=== PATIENT | female | born 1985 ===

== ENCOUNTER 2017-08-31 09:46 | Emergency (ER) | payer OTHER, MEDICAID ==
[2017-08-31 09:49] VITALS: BMI 24.2
[2017-08-31 09:50] VITALS: RESP 16
[2017-08-31] MEDS ORDERED: Naproxen 500 MG TAB PO ONE ×2 (10:11→10:15)
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
[2017-08-31 12:27] VITALS: BP 117/86; PULSE 82; TEMP 97.5; O2SAT 100
== END 2017-08-31 12:24 | disposition home or self-care (01) ==
LOC: H.ER 09:46
DX: S13.4XXA Sprain of ligaments of cervical spine, initial encounter (principal); V43.52XA Car driver injured in collision with other type car in traffic accident, initial encounter; Y92.410 Unspecified street and highway as the place of occurrence of the external cause

== ENCOUNTER 2018-01-04 11:48 | Emergency (ER) | payer MEDICAID, OTHER ==
[2018-01-04 11:48] VITALS: BMI 24.2
--- NOTE | 2018-01-04 12:53 | ED PDOC ---
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 Pt. reports left arm pain that radiates to her chest onset for one month; no associated pleuritic component, no sob. Patient also reports of left foot pain when walking which has been a couple weeks. Pt. also reporting atraumatic left elbow pain. She states she is under stress and has anxiety. Denies family history of heart disease, recent travels, abdominal pain, urinary symptoms or incontinence. PMD: No Family Provider <Carol Clements - Last Filed: 01/04/18 15:59> <Tariq Sheehan - Last Filed: 01/05/18 16:48> Time Seen by Provider: 01/04/18 12:06 Chief Complaint (Nursing): Upper Extremity Problem/Injury Past Medical History Reviewed: Historical Data, Nursing Documentation, Vital Signs Vital Signs: Last Vital Signs Temp 98.0 F 01/04/18 11:56 Pulse 72 01/04/18 11:56 Resp 18 01/04/18 11:56 BP 129/86 01/04/18 11:56 Pulse Ox 99 01/04/18 11:56 - Medical History PMH: No Chronic Diseases - Family History Family History: States: No Known Family Hx <Carol Clements - Last Filed: 01/04/18 15:59> Vital Signs: Last Vital Signs Temp 98 F 01/04/18 13:34 Pulse 70 01/04/18 13:34 Resp 20 01/04/18 13:34 BP 110/70 01/04/18 13:34 Pulse Ox 99 01/04/18 16:04 <Tariq Sheehan - Last Filed: 01/05/18 16:48> - Home Medications Home Medications: Ambulatory Orders Medication Instructions Recorded Cyclobenzaprine [Cyclobenzaprine 10 mg PO TID #15 tab 08/31/17 HCl] RX: Naproxen [Naprosyn] 500 mg PO BID PRN #20 tablet 08/31/17 - Allergies Allergies/Adverse Reactions: Allergies Allergy/AdvReac Type Severity Reaction Status Date / Time No Known Allergies Allergy Verified 04/24/14 18:51 Review of Systems ROS Statement: Except As Marked, All Systems Reviewed And Found Negative Cardiovascular: Positive for: Chest Pain Gastrointestinal: Negative for: Abdominal Pain Genitourinary Female: Negative for: Dysuria, Frequency, Incontinence Musculoskeletal: Positive for: Arm Pain (left), Foot Pain (left ), Other (left elbow painn) Psych: Positive for: Anxiety. Negative for: Suicidal ideation (homicidal ideation) <Carol Clements - Last Filed: 01/04/18 15:59> Physical Exam - Reviewed Nursing Documentation Reviewed: Yes Vital Signs Reviewed: Yes - Physical Exam Appears: Positive for: Non-toxic, No Acute Distress Head Exam: Positive for: ATRAUMATIC, NORMAL INSPECTION, NORMOCEPHALIC Skin: Positive for: Normal Color, Warm, Dry. Negative for: Rash Eye Exam: Positive for: Normal appearance Cardiovascular/Chest: Positive for: Regular Rate, Rhythm, Other. Negative for: Chest Non Tender (mild midsternal chest wall tenderness) Extremity: Positive for: Tenderness (mild, left elbow tenderness with no swelling or erythema. Full painless ROM of elbow.), Swelling (mild, left paiin), Other (LLE: no localized tenderness to foot, no associated swelling or erythema. No calf swelling or tenderness. ). Negative for: Deformity Neurologic/Psych: Positive for: Alert, Oriented (x3) <Carol Clements - Last Filed: 01/04/18 15:59> - ECG O2 Sat by Pulse Oximetry: 99 (RA) Pulse Ox Interpretation: Normal <Carol Clements - Last Filed: 01/04/18 15:59> Medical Decision Making Medical Decision Making: Time: 1218 --ED Urine --Chest TWO Views [RAD] --Motrin 600mg --Elbow Left 3 Views [RAD] --Foot Left Great Toe [RAD] --Reevaluation Pt. well appearing, no cp, lungs clear, no distress. EKG: NSP at 66bpm, no ST changes, QTC is 389ms Time: 1256 TECHNIQUE: Chest PA and lateral FINDINGS: LUNGS: No consolidation. A 3 mm vague nodular opacity projects over the right upper lung zone on the frontal view this could represent a prominent vessel seen on end given patient's young 32 years of age. No comparisons are available. PLEURA: No significant pleural effusion identified. No pneumothorax apparent. CARDIOVASCULAR: Normal. OSSEOUS STRUCTURES: No significant abnormalities. VISUALIZED UPPER ABDOMEN: Normal. OTHER FINDINGS: None. IMPRESSION: No consolidation, pleural effusion or pneumothorax to explain patient's current symptomatology. The nonspecific sub cm nodular opacity in the right upper lobe may represent a prominent vessel on end. Clinical significance, if any-is unknown. Comparison with any prior outside studies recommended. For more sensitive evaluation consider an elective, noncontrast CT chest CXR : NAD, as read by SHASTA. Time: 1256 PROCEDURE: Radiographs of the left great toe. TECHNIQUE:: AP radiograph of the left foot, with oblique and lateral view of the left great toe. COMPARISON: None. FINDINGS: BONES: Normal. No fracture. JOINTS: Minimal joint-space narrowing and minimal lateral 1st metatarsal head spurring SOFT TISSUES: Normal. OTHER FINDINGS: None. IMPRESSION: Minimal degenerative change-1st metatarsal-phalangeal joint. Time: 1302 PROCEDURE: Radiographs of the left elbow. HISTORY: pain COMPARISON: No prior. FINDINGS: BONES: No fracture. Possible minimal medial ulnar osseous hypertrophy JOINTS: Possible early medial elbow joint degenerative change. Findings are borderline SOFT TISSUES: Normal. JOINT EFFUSION: None. OTHER FINDINGS: None IMPRESSION: No fracture or lytic lesion. Possible minimal early degenerative changes medial elbow joint. XR of left foot and left elbow presents no fracture, no dislocation, as read by SHASTA. Scribe Attestation: Documented by Michelle Machado, acting as a scribe for Carol Clements PA-C. Provider Scribe Attestation: All medical record entries made by the Scribe were at my direction and personally dictated by me. I have reviewed the chart and agree that the record accurately reflects my personal performance of the history, physical exam, medical decision making, and the department course for this patient. I have also personally directed, reviewed, and agree with the discharge instructions and disposition. <Carol Clements S - Last Filed: 01/04/18 15:59> Disposition - Patient ED Disposition Is Patient to be Admitted: No - Disposition Disposition: Routine/Home Disposition Time: 13:25 <Carol Clements S - Last Filed: 01/04/18 15:59> <Tariq Sheehan M - Last Filed: 01/05/18 16:48> - Clinical Impression Clinical Impression: Shoulder pain, Foot pain, Chest wall pain - Disposition Referrals: [facility] [Outside] Condition: STABLE Instructions: Chest Pain That Is Not Caused by the Heart (DC), Muscle and Bone Pain (DC) Forms: [employer] (Salvadorean), [employer] (Swedish) Print Language: MONGOLIAN Addendum Addendum: 01/05/18 16:48 Reviewed PA chart and agree. <Tariq Sheehan M - Last Filed: 01/05/18 16:48>
--- NOTE | 2018-01-04 13:01 | RAD ---
Date of service: 01/04/2018 HISTORY: pain COMPARISON: No prior. TECHNIQUE: Chest PA and lateral FINDINGS: LUNGS: No consolidation. A 3 mm vague nodular opacity projects over the right upper lung zone on the frontal view this could represent a prominent vessel seen on end given patient's young 32 years of age. No comparisons are available. PLEURA: No significant pleural effusion identified. No pneumothorax apparent. CARDIOVASCULAR: Normal. OSSEOUS STRUCTURES: No significant abnormalities. VISUALIZED UPPER ABDOMEN: Normal. OTHER FINDINGS: None. IMPRESSION: No consolidation, pleural effusion or pneumothorax to explain patient's current symptomatology. The nonspecific sub cm nodular opacity in the right upper lobe may represent a prominent vessel on end. Clinical significance, if any-is unknown. Comparison with any prior outside studies recommended. For more sensitive evaluation consider an elective, noncontrast CT chest
--- NOTE | 2018-01-04 13:04 | RAD ---
PROCEDURE: Radiographs of the left great toe. TECHNIQUE:: AP radiograph of the left foot, with oblique and lateral view of the left great toe. COMPARISON: None. FINDINGS: BONES: Normal. No fracture. JOINTS: Minimal joint-space narrowing and minimal lateral 1st metatarsal head spurring SOFT TISSUES: Normal. OTHER FINDINGS: None. IMPRESSION: Minimal degenerative change-1st metatarsal-phalangeal joint.
--- NOTE | 2018-01-04 13:05 | RAD ---
Date of service: 01/04/2018 PROCEDURE: Radiographs of the left elbow. HISTORY: pain COMPARISON: No prior. FINDINGS: BONES: No fracture. Possible minimal medial ulnar osseous hypertrophy JOINTS: Possible early medial elbow joint degenerative change. Findings are borderline SOFT TISSUES: Normal. JOINT EFFUSION: None. OTHER FINDINGS: None IMPRESSION: No fracture or lytic lesion. Possible minimal early degenerative changes medial elbow joint.
[2018-01-04 13:35] VITALS: BP 110/70; PULSE 70; RESP 20; TEMP 98
[2018-01-04 16:02] VITALS: O2SAT 99
== END 2018-01-04 13:35 | disposition home or self-care (01) ==
LOC: H.ER 11:48
DX: M79.672 Pain in left foot (principal); M25.512 Pain in left shoulder; M25.522 Pain in left elbow; R07.89 Other chest pain